=== PATIENT | male | born 1955 | race Caucasian/White ===

== ENCOUNTER 2016-07-13 16:29 | Emergency (ER) | payer OTHER ==
[~2016-07-13] VITALS: Ht 172.7 cm; Wt 80.0 kg
[~2016-07-13 16:29] MED LIST: ANTI-FUNGAL12 TOP; CIPROFLOXACN500 MG PO; NAPROSYN500 MG PO; ULTRAM50 M1 PO
[2016-07-13] MEDS ORDERED: CIPROFLOXACN500 MG PO (16:57)
[2016-07-13] MEDS ORDERED: MOTRIN800 MG PO (16:57)
[2016-07-13 18:35] VITALS: BP 186/93
[2016-07-13 18:41] LABS: URINE BILIRUBIN - DIPSTICK NEGATIVE (NEGATIVE); URINE BLOOD DIPSTICK NEGATIVE (NEGATIVE); URINE CLARITY CLEAR; URINE COLOR YELLOW; URINE GLUCOSE - DIPSTICK NEGATIVE (NEGATIVE); URINE KETONE 15 mg/dL (NEGATIVE); URINE LEUK ESTERASE NEGATIVE (NEGATIVE); URINE NITRITE - DIPSTICK NEGATIVE (Negative); URINE PROTEIN - DIPSTICK NEGATIVE (NEG-TRACE); URINE SPECIFIC GRAVITY 1.025; URINE UROBILINOGEN - DIPSTICK 0.2 E.U./dL (0.2)
== END 2016-07-13 18:56 | DRG 728 ==
LOC: ED 16:29
PROVIDERS: Emergency Medicine
DX: N45.1 Epididymitis (principal); N43.3 Hydrocele, unspecified

== ENCOUNTER 2016-09-28 19:45 | Observation (INO) | payer SELFPAY ==
[~2016-09-28] VITALS: Ht 172.7 cm; Wt 73.5 kg
[~2016-09-28 19:45] MED LIST changes: +MOTRIN800 MG PO
[2016-09-28 20:50] LABS: HEMOGLOBIN 12.8 g/dl (14.0-18.0); IMMATURE GRANULOCYTES 0.2 % (0.0-1.0); MEAN CELL VOLUME 90.5 fL CALC (80.0-100.0); NEUT# 2.47 thou/uL (1.82-7.42); RED BLOOD COUNT 4.42 mill/uL (4.70-6.10); RED CELL DISTRI WIDTH 12.1 % (11.5-15.5)
[2016-09-28 21:07] LABS: ALBUMIN 4.3 g/dL (3.2-5.0); ALKALINE PHOSPHATASE 42 u/l (38-126); ANION GAP 16 (6-22 (CALC)); BILIRUBIN, TOTAL 0.7 mg/dL (0.0-1.4); BUN 16 mg/dL (9-20); BUN/CREATININE RATIO 17 (12-20 (CALC)); CARBON DIOXIDE 28 mmol/l (22-30); CHLORIDE 103 mmol/l (95-108); CREATININE 0.9 mg/dL (0.7-1.3); ETHYL ALCOHOL 0 mg/dl (0-30); GFR > 60 ML/MIN (>=60 (CALC)); GFR FOR AFR.AMER. > 60 ML/MIN (>=60 (CALC)); GLUCOSE 89 mg/dL (75-110); POTASSIUM 4.3 mmol/l (3.5-5.1); SGOT/AST 42 u/l (17-59); SGPT/ALT 26 u/l (21-72); SODIUM 142 mmol/l (137-146); TOTAL PROTEIN 7.3 g/dL (6.3-8.2)
[2016-09-28 21:18] LABS: MYOGLOBIN 57 ng/mL (0 - 121)
[2016-09-29 00:30] VITALS: BP 110/76
[2016-09-29 03:10] VITALS: BP 113/74
[2016-09-29 05:19] LABS: URINE BILIRUBIN - DIPSTICK NEGATIVE (NEGATIVE); URINE BLOOD DIPSTICK NEGATIVE (NEGATIVE); URINE CLARITY CLEAR; URINE COLOR YELLOW; URINE GLUCOSE - DIPSTICK NEGATIVE (NEGATIVE); URINE KETONE NEGATIVE (NEGATIVE); URINE LEUK ESTERASE NEGATIVE (NEGATIVE); URINE NITRITE - DIPSTICK NEGATIVE (Negative); URINE PH 6.5 (4.5-8.0); URINE PROTEIN - DIPSTICK NEGATIVE (NEG-TRACE); URINE SPECIFIC GRAVITY <=1.005; URINE UROBILINOGEN - DIPSTICK 0.2 E.U./dL (0.2)
[2016-09-29 05:25] LABS: BARBITURATES NEGATIVE (NEGATIVE); COCAINE NEGATIVE (NEGATIVE); METHADONE NEGATIVE (NEGATIVE); OXCYCODONE NEGATIVE (NEGATIVE); TETRAHYDROCANNABIONOL NEGATIVE (NEGATIVE); TRICYLIC ANTIDEPRESSANTS NEGATIVE (NEGATIVE)
[2016-09-29 07:46] VITALS: BP 117/73
[2016-09-29] MEDS ORDERED: VENLAFAXINE H37.5 M1 PO (08:25)
[2016-09-29] MEDS ORDERED: HALDOL5 MG PO (08:25)
[2016-09-29] MEDS ORDERED: TRAZODONE100 MG PO (08:26)
[2016-09-29] MEDS ORDERED: BENZTROPINE0.5 MG PO (08:27)
== END 2016-09-29 12:50 | disposition home or self-care (01) | DRG 312 ==
LOC: ENPENDDIS → ED 19:45 → ED-I 22:19 → ED 23:19 → MS2 23:20
PROVIDERS: ADMIT Internal Medicine; ATTEND Internal Medicine
DX: R55 Syncope and collapse (principal); F20.0 Paranoid schizophrenia; S00.31XA Abrasion of nose, initial encounter; W18.30XA Fall on same level, unspecified, initial encounter; Y92.511 Restaurant or cafe as the place of occurrence of the external cause; Z87.891 Personal history of nicotine dependence; Z59.0 Homelessness
CPT/HCPCS: G0378